=== PATIENT | male | born 1965 | race Caucasian/White ===

== ENCOUNTER 2022-03-26 17:19 | Emergency (ER) | payer MEDICAID ==
[~2022-03-26] VITALS: Ht 165.1 cm; Wt 78.9 kg
[2022-03-26 18:08] VITALS: BP 134/88
[2022-03-26] MEDS ORDERED: LIDOCAINE MPF 1% 10 MG/ML VIAL INJ ONE (19:00)
--- NOTE | 2022-03-26 19:31 | NUR ---
Patient has a 5 cm laceration to left forearm. GONSALO NAVA applied sutures using sterile technique. Edges well approximated. Site cleansed with NSS+ betadine. No bleeding noted. Pt tolerated well.
[2022-03-26 19:45] VITALS: BP 134/88
--- NOTE | 2022-03-26 19:45 | NUR ---
Patient discharged with v/s stable. Written and verbal after care instructions given and explained. Patient verbalized understanding. Ambulatory with steady gait. All questions addressed prior to discharge. Advised to follow up with PMD.
== END 2022-03-26 19:45 | disposition home or self-care (01) ==
LOC: MED 17:19
DX: S51.812A Laceration without foreign body of left forearm, initial encounter (principal); W26.8XXA Contact with other sharp object(s), not elsewhere classified, initial encounter; Y93.89 Activity, other specified; Y92.89 Other specified places as the place of occurrence of the external cause; Y99.8 Other external cause status
CPT/HCPCS: 12002; 90471; 90715; 99283; J2001

== ENCOUNTER 2022-05-24 10:53 | Emergency (ER) | payer MEDICAID ==
[~2022-05-24] VITALS: Ht 157.5 cm; Wt 65.8 kg
[2022-05-24 11:10] VITALS: BP 143/80
--- NOTE | 2022-05-24 11:32 | NUR ---
56 y/o male bib self from home, pt presents to ed with c/o left foot pain post injury, pt states he had a chan tile fall on his foot. skin is pink/warm/dry. a&o x4 with even and steady gait. pmh: denies nka
[2022-05-24] MEDS ORDERED: LIDOCAINE MPF 1% 10 MG/ML VIAL INJ ONE (12:15)
[2022-05-24] MEDS ORDERED: IBUPROFEN 600 MG TAB PO ONE (12:15)
[2022-05-24] MEDS ORDERED: BACITRACIN OINT 500 UNITS/GM PKT TP ONE (12:15)
[2022-05-24] MEDS ORDERED: BACI1PAC6 TP (12:49)
[2022-05-24] MEDS ORDERED: IBUP-2213 PO (12:49)
--- NOTE | 2022-05-24 12:53 | NUR ---
non adherent x 1 applied to anterior foot. ortho shoe applied + cms
[2022-05-24 13:17] VITALS: BP 129/84
== END 2022-05-24 13:17 | disposition home or self-care (01) ==
LOC: MED 10:53
DX: S91.312A Laceration without foreign body, left foot, initial encounter (principal); W22.8XXA Striking against or struck by other objects, initial encounter; Y93.89 Activity, other specified; Y92.89 Other specified places as the place of occurrence of the external cause; Y99.8 Other external cause status
CPT/HCPCS: 12001; 73630; 99283; J2001